=== PATIENT | male | born 1995 | race African-American/Black ===

== ENCOUNTER 2017-12-25 16:25 | Emergency (ER) | payer BC ==
[2017-12-25 16:31] VITALS: BP 117/77; PULSE 77; RESP 18; TEMP 99
[2017-12-25] MEDS ORDERED: cefTRIAXone 250 MG VIAL IM STA (17:17)
--- NOTE | 2017-12-25 17:19 | ED ---
Male Urogenital HPI - General Chief complaint: Urogenital Stated complaint: Male Time Seen by Provider: 12/25/17 16:44 Source: patient Mode of arrival: ambulatory Limitations: no limitations - History of Present Illness Initial comments: 22-year-old Afro-[place]ong[place]ian male presented for evaluation of penile discharge and burning. He states that he recently had sexual intercourse with a female and has since been having burning dysuria and cloudy discharge at the urethral meatus. Denies use a having similar symptoms to this. States only mild testicular discomfort however there is no abdominal pain, nausea, vomiting, fevers, chills. There are no penile or scrotal lesions a denies any inguinal lymphadenopathy. - Related Data Previous Rx's Medication Instructions Recorded Doxycycline Hyclate 100 mg PO BID #20 tab 12/25/17 Allergies Allergy/AdvReac Type Severity Reaction Status Date / Time Sulfa (Sulfonamide Allergy Rash/Hives Verified 12/25/17 16:44 Antibiotics) Review of Systems ROS Statement: Those systems with pertinent positive or pertinent negative responses have been documented in the HPI. ROS Other: All systems not noted in ROS Statement are negative. Constitutional: Denies: fever, chills Respiratory: Denies: cough, dyspnea Cardiovascular: Denies: chest pain, palpitations Genitourinary: Reports: dysuria, discharge, testicular pain (Mild) Skin: Denies: rash, lesions Hematological/Lymphatic: Denies: easy bruising, swollen glands Past Medical History Past Medical History: No Reported History History of Any Multi-Drug Resistant Organisms: None Reported Past Surgical History: Tonsillectomy Additional Past Surgical History / Comment(s): Left eye surgery Past Psychological History: No Psychological Hx Reported Smoking Status: Current every day smoker Past Alcohol Use History: None Reported Past Drug Use History: Marijuana General Exam Limitations: no limitations General appearance: alert, in no apparent distress Head exam: Present: atraumatic, normocephalic Eye exam: Absent: scleral icterus, conjunctival injection Respiratory exam: Present: normal lung sounds bilaterally. Absent: respiratory distress, wheezes, rales, rhonchi Cardiovascular Exam: Present: regular rate, normal rhythm. Absent: bradycardia , tachycardia GI/Abdominal exam: Present: soft. Absent: distended, tenderness, guarding, rebound, rigid Rectal exam: Present: deferred exam: Present: normal inspection, circumcision. Absent: testicular tenderness, urethral discharge, scrotal swelling, vertical testicular lie External exam: Absent: erythema, swelling, lesions, lacerations Psychiatric exam: Present: normal affect, normal mood Skin exam: Present: warm, dry, intact Course Vital Signs 12/25/17 16:28 Temperature 99.0 F Pulse Rate 77 Respiratory 18 Rate Blood Pressure 117/77 O2 Sat by Pulse 99 Oximetry Medical Decision Making - Medical Decision Making 22-year-old -Mongolian male presenting for evaluation of penile discharge and dysuria 3 days post sexual intercourse with a new sexual partner. On physical examination there is no discharge at the urethral meatus at this time and there are no penile lesions or scrotal lesions. Negative for inguinal lymphadenopathy. Concern for sexually transmitted illness and urine sample obtained for gonorrhea and chlamydia rRNA. We'll sent for evaluation and treat the patient with Rocephin and doxycycline. Advised to follow-up with primary care physician and informed that he would be contacted if his results were positive. Further given instructions on safe sex practices. Advised to contact his sexual partner to have her tested as well and he states that he has already done so. Disposition Clinical Impression: Penile discharge, Sexually transmitted disease exposure Disposition: HOME SELF-CARE Condition: Stable Instructions: Chlamydia (ED), Sexually Transmitted Diseases (ED), Safe Sex (ED) , Gonorrhea (ED) Additional Instructions: Please use medication as discussed. Please follow up with family doctor if symptoms have not improved over the next two days. Please return to the emergency room if your symptoms increase or worsen or for any other concerns. Prescriptions: Doxycycline Hyclate 100 mg PO BID #20 tab Referrals: None,Stated [Primary Care Provider] - 1-2 days Time of Disposition: 17:19
[2017-12-26 15:22] LABS: C. trachomatis,PCR Negative (Neg,Equiv); Chlamydia trachomatis Source Urine; N. gonorrhoeae,PCR Negative (Neg,Equiv); Neisseria Source Urine
== END 2017-12-25 17:35 | disposition home or self-care (01) ==
LOC: EC 16:25
DX: R36.9 Urethral discharge, unspecified (principal); R30.0 Dysuria; Z20.2 Contact with and (suspected) exposure to infections with a predominantly sexual mode of transmission; F17.200 Nicotine dependence, unspecified, uncomplicated; Z88.2 Allergy status to sulfonamides
CPT/HCPCS: 87491; 87591; 99283; 96372; J0696

== ENCOUNTER 2018-08-03 20:29 | Emergency (ER) | payer BC ==
[2018-08-03 20:34] VITALS: RESP 16
--- NOTE | 2018-08-03 20:55 | ED ---
General Adult HPI - General Source: patient Mode of arrival: ambulatory Limitations: no limitations <Anh Doll - Last Filed: 08/03/18 23:39> <Hanane Lee - Last Filed: 08/04/18 00:21> - General Chief complaint: Recheck/Abnormal Lab/Rx Stated complaint: CHECK UP? 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 pt denies current symptoms including dysuria, urgency, frequency, hematuria, penile discharge, penile lesions or ulcerations, testicular pain or swelling, rashes of the hands or feet fever, chills, night sweats, penile pain. Pt denies PMH of STD. Pt states he just wanted to be sure. Remainder of ROS (-), patient denies any recent fever, chills, shortness of breath, chest pain, back pain, abdominal pain, nausea or vomiting, numbness or tingling, constipation or diarrhea, headaches or visual changes, or any other complaints. Upon arrival pt VS with acceptable limits. Pt appears well. (Anh Doll) - Related Data Home Medications Medication Instructions Recorded Confirmed No Known Home Medications 08/03/18 08/03/18 Allergies Allergy/AdvReac Type Severity Reaction Status Date / Time Sulfa (Sulfonamide Allergy Rash/Hives Verified 12/25/17 16:44 Antibiotics) Review of Systems ROS Other: All systems not noted in ROS Statement are negative. Constitutional: Denies: fever, chills, night sweats ENT: Denies: ear pain, throat pain Respiratory: Denies: cough, dyspnea, wheezes, hemoptysis, stridor Cardiovascular: Denies: chest pain, palpitations Gastrointestinal: Denies: abdominal pain, nausea, vomiting, diarrhea, constipation Genitourinary: Denies: urgency, dysuria, frequency, hematuria, discharge, testicular pain, testicular mass <Anh Doll - Last Filed: 08/03/18 23:39> ROS Other: All systems not noted in ROS Statement are negative. <Hanane Lee Last Filed: 08/04/18 00:21> ROS Statement: Those systems with pertinent positive or pertinent negative responses have been documented in the HPI. Past Medical History Past Medical History: No Reported History History of Any Multi-Drug Resistant Organisms: None Reported Past Surgical History: Tonsillectomy Additional Past Surgical History / Comment(s): Left eye surgery Past Psychological History: No Psychological Hx Reported Smoking Status: Current every day smoker Past Alcohol Use History: None Reported Past Drug Use History: Marijuana <Anh Doll - Last Filed: 08/03/18 23:39> General Exam Limitations: no limitations <Anh Doll - Last Filed: 08/03/18 23:39> <Hanane Lee P - Last Filed: 08/04/18 00:21> - General Exam Comments Initial Comments: General: The patient is awake and alert, in no distress, and does not appear acutely ill. Eye: Pupils are equal, round and reactive to light, extra-ocular movements are intact. No nystagmus. There is normal conjunctiva bilaterally. No signs of icterus. Ears, nose, mouth and throat: There are moist mucous membranes and no oral lesions. Neck: The neck is supple, there is no tenderness or JVD. Cardiovascular: There is a regular rate and rhythm. No murmur, rub or gallop is appreciated. Respiratory: Lungs are clear to auscultation, respirations are non-labored, breath sounds are equal. No wheezes, stridor, rales, or rhonchi. Gastrointestinal: Soft, non-distended, non-tender abdomen without masses or organomegaly noted. There is no rebound or guarding present. No CVA tenderness. Bowel sounds are unremarkable. Musculoskeletal: Normal ROM, no tenderness. Strength 5/5. Sensation intact. Pulses equal bilaterally 2+. Neurological: A&O x 3. CN II-XII intact, There are no obvious motor or sensory deficits. Coordination appears grossly intact. Speech is normal. Skin: Skin is warm and dry and no rashes or lesions are noted. Psychiatric: Cooperative, appropriate mood & affect, normal judgment. (Anh Doll) Vital Signs 08/03/18 08/03/18 20:31 21:50 Temperature 98.4 F 98.2 F Pulse Rate 86 81 Respiratory 16 16 Rate Blood Pressure 135/73 130/78 O2 Sat by Pulse 100 98 Oximetry Medical Decision Making <Anh Doll - Last Filed: 08/03/18 23:39> <Hanane Lee - Last Filed: 08/04/18 00:21> - Medical Decision Making STD testing discussed with patient. We discussed the efficacy of swab vs urine specimen however pt preferred urine specimen testing at this time. Pt deferred genitalia examination, states no abnormalities. Deferred HIV/syphillis testing at this time. Safe sex practices discussed with patient. Testing pending, UA as noted above. Pt treated ppx for STI with IM rocephin and azithromycin. Pt agreeable with plan we instructed pt to f/u with primary care provider, pt verbalized understanding. pt was discharged in stable condition after discussing case with Dr. Lee. Remainder of exam normal. (Anh Doll) I was available for consultation in the emergency department. The history and physical exam were done by the midlevel provider. I was consulted for this patient's care. I reviewed the case with the midlevel provider and based on their presentation of the patient, I agree with the assessment, medical decision making and plan of care as documented. (Hanane Lee) - Lab Data Lab Results 08/03/18 Range/Units 20:50 Urine Color Yellow Urine Appearance Clear (Clear) Urine pH 6.0 (5.0-8.0) Ur Specific Kaplan 1.031 (1.001-1.035) Urine Protein 1+ H (Negative) Urine Glucose (UA) Negative (Negative) Urine Ketones Trace H (Negative) Urine Blood Negative (Negative) Urine Nitrite Negative (Negative) Urine Bilirubin Negative (Negative) Urine Urobilinogen 4.0 (<2.0) mg/dL Ur Leukocyte Esterase Negative (Negative) Ur Squamous Epith Cells 1 (0-4) /hpf Urine Mucus Many H (None) /hpf Disposition Is patient prescribed a controlled substance at d/c from ED?: No Time of Disposition: 21:44 <Anh Doll - Last Filed: 08/03/18 23:39> <Hanane Lee - Last Filed: 08/04/18 00:21> Clinical Impression: Normal exam, Concern about STD in male without diagnosis Disposition: HOME SELF-CARE Condition: Good Instructions: Sexually Transmitted Diseases (ED), Safe Sex (ED) Additional Instructions: Please follow-up with family doctor in the next 2 days. Please return to emergency room if the symptoms increase or worsen or for any other concerns. Referrals: Nonstaff,Physician [REFERRING] - 1-2 days [facility] Allison pop [NON-STAFF] - 1-2 days
[2018-08-03 21:08] LABS: Appearance,Urine Clear (Clear); Bilirubin,Urine Negative (Negative); Blood,Urine Negative (Negative); Color,Urine Yellow; Glucose,Urine (UA) Negative (Negative); Ketones,Urine Trace (Negative); Leukocyte Esterase,Urine Negative (Negative); Mucus,Urine Many /hpf; Nitrite,Urine Negative (Negative); Protein,Urine 1+ (Negative); Specific Gravity,Urine 1.031 (1.001-1.035); Squamous Epithelial Cell,Urine 1 /hpf (0-4)
[2018-08-03] MEDS ORDERED: AZITHROMYCIN 500 MG TAB PO STA (21:22)
[2018-08-03] MEDS ORDERED: cefTRIAXone 250 MG VIAL IM STA (21:22)
[2018-08-03 21:51] VITALS: BP 130/78; PULSE 81; TEMP 98.2
[2018-08-05 13:43] LABS: N. gonorrhoeae,PCR Negative (Neg,Equiv); Neisseria Source Urine
[2018-08-05 13:48] LABS: C. trachomatis,PCR Negative (Neg,Equiv); Chlamydia trachomatis Source Urine
== END 2018-08-03 21:50 | disposition home or self-care (01) ==
LOC: EC 20:29
DX: Z11.3 Encounter for screening for infections with a predominantly sexual mode of transmission (principal); F17.200 Nicotine dependence, unspecified, uncomplicated; Z88.2 Allergy status to sulfonamides
CPT/HCPCS: 81001; 87491; 87591; 99283; 96372; J0696

== ENCOUNTER 2018-08-23 12:21 | Emergency (ER) | payer BC ==
[2018-08-23 13:16] VITALS: BP 134/87; PULSE 70; RESP 18; TEMP 98.3
--- NOTE | 2018-08-23 13:57 | ED ---
General Adult HPI - General Chief complaint: Skin/Abscess/Foreign Body Stated complaint: Urogenital Source: patient, RN notes reviewed, old records reviewed Mode of arrival: ambulatory Limitations: no limitations - History of Present Illness Initial comments: 23-year-old male patient presents to ED with 48 hours of pubic itching. Patient states that he thinks that he might have jock itch. Patient states that the itching is worse in his right or pubic flexor crease. Patient denies patient recent unprotected sexual activity. Patient stated that he has not had sexual intercourse in over 2 months. Patient states that he is not believe he has risk of STD. Patient states that he wants cream to decrease itching. Patient denies dysuria, urethral discharge, fever chills, nausea vomiting diarrhea, chest pain, shortness breath, any other symptoms. Systemic: Pt denies fatigue, myalgia, fever/chills, rash. Pt denies weakness, night sweats, weight loss. Neuro: Pt denies headache, visual disturbances, syncope or pre-syncope. HEENT: Pt denies ocular discharge or irritation, otalgia, rhinorrhea, pharyngitis or notable lymphadenopathy. Cardiopulmonary: Pt denies chest pain, SOB, heart palpitations, dyspnea on exertion. Abdominal/GI: Pt denies abdominal pain, n/v/d. : Pt denies dysuria, burning w/ urination, frequency/urgency. Denies new onset urinary or bowel incontinence. MSK: Pt denies myalgia, loss of strength or function in extremities. - Related Data Previous Rx's Medication Instructions Recorded Acyclovir 400 mg PO 5XD #25 tablet 08/08/18 Clotrimazole [Clotrimazole 1% Top 1 applic TOPICAL Q12HR 14 Days #1 08/23/18 Soln] tube Allergies Allergy/AdvReac Type Severity Reaction Status Date / Time Sulfa (Sulfonamide Allergy Rash/Hives Verified 08/08/18 15:18 Antibiotics) Review of Systems ROS Statement: Those systems with pertinent positive or pertinent negative responses have been documented in the HPI. ROS Other: All systems not noted in ROS Statement are negative. Past Medical History Past Medical History: No Reported History History of Any Multi-Drug Resistant Organisms: None Reported Past Surgical History: Tonsillectomy Additional Past Surgical History / Comment(s): Left eye surgery Past Psychological History: No Psychological Hx Reported Smoking Status: Current every day smoker Past Alcohol Use History: None Reported Past Drug Use History: Marijuana General Exam - General Exam Comments Initial Comments: Constitutional: NAD, AOX3, Pt has pleasant affect. HEENT: NC/AT, trachea midline, neck supple, no lymphadenopathy. Posterior pharynx non erythematous, without exudates. External ears appear normal, without discharge. Mucous membranes moist. Eyes PERRLA, EOM intact. There is no scleral icterus. No pallor noted. Cardiopulmonary: RRR, no murmurs, rubs or gallops, no JVD noted. Lungs CTAB in anterior and posterior campos. No peripheral edema. Abdominal exam: Abdomen soft and non-distended. Abdomen non-tender to palpation in all 4 quadrants. Bowel sounds active in LLQ. No hepatosplenomegaly. Neuro: CN II-XII grossly intact. : Mild erythema noted in pubic region and in R [place] pubic flexor crease. Pt has mild skin abrasion in R [place] pubic flexor crease, pt states that it is from vigorously itching. No lesions, ulcerations, papules, urethral discharge noted. Limitations: no limitations Course Vital Signs 08/23/18 13:14 Temperature 98.3 F Pulse Rate 70 Respiratory 18 Rate Blood Pressure 134/87 O2 Sat by Pulse 100 Oximetry Medical Decision Making - Medical Decision Making 23-year-old male patient presents to ED with 48 hours of pubic itching. Patient states that he thinks that he might have jock itch. Patient states that the itching is worse in his right or pubic flexor crease. Patient denies patient recent unprotected sexual activity. Patient stated that he has not had sexual intercourse in over 2 months. Patient states that he is not believe he has risk of STD. Patient states that he wants cream to decrease itching. Patient denies dysuria, urethral discharge, fever chills, nausea vomiting diarrhea, chest pain, shortness breath, any other symptoms. exam displayed Mild erythema noted in pubic region and in R [place] pubic flexor crease. Pt has mild skin abrasion in [place] pubic flexor crease, pt states that it is from vigorously itching. No lesions, ulcerations, papules, urethral discharge noted. Pt dx with Tinea Cruis. Patient offered STI testing, patient acceptedpatient to be tested for Chlamydia/gonorrhea a UA PCR, patient be contacted via phone about her positive. Patient to be treated with clomethiazole for tinea cruris. Patient to follow up with PCP in 1-2 days. Patient to return to ED if any new signs symptoms develop including, worsening itching, fever chills, urethral discharge, gentle ulceration, papules, any other new symptoms. Case discussed with Dr. Figueroa. Disposition Clinical Impression: Tinea cruris Disposition: HOME SELF-CARE Condition: Good Instructions: Lupillo Butler (ED) Prescriptions: Clotrimazole [Clotrimazole 1% Top Soln] 1 applic TOPICAL Q12HR 14 Days #1 tube Is patient prescribed a controlled substance at d/c from ED?: No Referrals: None,Stated [Primary Care Provider] - 1-2 days Time of Disposition: 13:59
[2018-08-23 14:22] LABS: Appearance,Urine Clear (Clear); Bilirubin,Urine Negative (Negative); Blood,Urine Negative (Negative); Color,Urine Yellow; Glucose,Urine (UA) Negative (Negative); Ketones,Urine Negative (Negative); Leukocyte Esterase,Urine Trace (Negative); Mucus,Urine Few /hpf; Nitrite,Urine Negative (Negative); PH, Urine 6.5 (5.0-8.0); Protein,Urine 1+ (Negative); RBC,Urine <1 /hpf (0-5); Specific Gravity,Urine 1.031 (1.001-1.035)
[2018-08-25 12:38] LABS: C. trachomatis,PCR Negative (Neg,Equiv); Chlamydia trachomatis Source Urine
[2018-08-25 13:10] LABS: N. gonorrhoeae,PCR Negative (Neg,Equiv); Neisseria Source Urine
== END 2018-08-23 14:13 | disposition home or self-care (01) ==
LOC: EC 12:21
DX: S30.810A Abrasion of lower back and pelvis, initial encounter (principal); B35.6 Tinea cruris; F17.200 Nicotine dependence, unspecified, uncomplicated; Z88.2 Allergy status to sulfonamides; X58.XXXA Exposure to other specified factors, initial encounter
CPT/HCPCS: 81001; 87491; 87591; 99284

== ENCOUNTER 2018-10-08 11:33 | Emergency (ER) | payer BC ==
[2018-10-08 11:39] VITALS: BP 105/67; PULSE 64; RESP 16; TEMP 98.3
[2018-10-08] MEDS ORDERED: cefTRIAXone 250 MG VIAL IM STA (12:15)
[2018-10-08] MEDS ORDERED: AZITHROMYCIN 250 MG TAB PO STA (12:15)
--- NOTE | 2018-10-08 12:17 | ED ---
Recheck HPI - General Chief Complaint: Recheck/Abnormal Lab/Rx Stated Complaint: STD check Time Seen by Provider: 10/08/18 12:07 Source: patient, RN notes reviewed Mode of arrival: ambulatory Limitations: no limitations - History of Present Illness Initial Comments: 23-year-old male presents emergency department for STD screening. Patient states he has no current symptoms. Patient states that he recently found out his significant other was cheating on him. Patient is concerned about gonorrhea chlamydia. Patient denies any dysuria, hematuria or penile discharge. Denies any lesions or sores. - Related Data Home Medications Medication Instructions Recorded Confirmed No Known Home Medications 10/08/18 10/08/18 Allergies Allergy/AdvReac Type Severity Reaction Status Date / Time Sulfa (Sulfonamide Allergy Rash/Hives Verified 10/08/18 11:46 Antibiotics) Review of Systems ROS Statement: Those systems with pertinent positive or pertinent negative responses have been documented in the HPI. ROS Other: All systems not noted in ROS Statement are negative. Past Medical History Past Medical History: No Reported History History of Any Multi-Drug Resistant Organisms: None Reported Past Surgical History: Tonsillectomy Additional Past Surgical History / Comment(s): Left eye surgery Past Psychological History: No Psychological Hx Reported Smoking Status: Current every day smoker Past Alcohol Use History: None Reported Past Drug Use History: Marijuana General Exam Limitations: no limitations General appearance: alert, in no apparent distress Head exam: Present: atraumatic, normocephalic, normal inspection Neck exam: Present: normal inspection. Absent: tenderness, meningismus, lymphadenopathy Respiratory exam: Present: normal lung sounds bilaterally. Absent: respiratory distress, wheezes, rales, rhonchi, stridor Cardiovascular Exam: Present: regular rate, normal rhythm, normal heart sounds. Absent: systolic murmur, diastolic murmur, rubs, gallop, clicks GI/Abdominal exam: Present: soft, normal bowel sounds. Absent: distended, tenderness, guarding, rebound, rigid Course Vital Signs 10/08/18 11:36 Temperature 98.3 F Pulse Rate 64 Respiratory 16 Rate Blood Pressure 105/67 O2 Sat by Pulse 100 Oximetry Medical Decision Making - Medical Decision Making 23-year-old male presented for STD screening. Patient is asymptomatic though requesting treatment. Patient we given Rocephin and azithromycin. Gonorrhea chlamydia screening was performed. Disposition Clinical Impression: Screen for STD (sexually transmitted disease) Disposition: HOME SELF-CARE Condition: Stable Instructions: Sexually Transmitted Diseases (ED) Additional Instructions: Please return to the Emergency Department if symptoms worsen or any other concerns. Is patient prescribed a controlled substance at d/c from ED?: No Referrals: None,Stated [Primary Care Provider] - 1-2 days Time of Disposition: 12:17
[2018-10-09 15:18] LABS: C. trachomatis,PCR Negative (Neg,Equiv); Chlamydia trachomatis Source Urine; N. gonorrhoeae,PCR Negative (Neg,Equiv); Neisseria Source Urine
== END 2018-10-08 12:38 | disposition home or self-care (01) ==
LOC: EC 11:33
DX: Z11.3 Encounter for screening for infections with a predominantly sexual mode of transmission (principal); Z11.8 Encounter for screening for other infectious and parasitic diseases; F17.200 Nicotine dependence, unspecified, uncomplicated; Z88.2 Allergy status to sulfonamides
CPT/HCPCS: 87491; 87591; 99283; 96372; J0696